=== PATIENT | male | born 1970 | race Caucasian/White ===

== ENCOUNTER 2020-05-16 09:59 | Emergency (ER) | payer BC ==
[2020-05-16] MEDS ORDERED: EPINEPHrine 1:10,000 (P-F SYR) 1 MG/10 ML DISP.SYRIN ONE (10:15)
[2020-05-16] MEDS ORDERED: SODIUM BICARBONATE 8.4% - 50 ML ONE (10:15)
[2020-05-16] MEDS ORDERED: CALCIUM CHLORIDE 1 GM/10 ML *DISP.SYRIN ONE (10:15)
--- NOTE | 2020-05-16 10:15 | PDOC ---
History of Present Illness - General Stated Complaint: CARDIAC ARREST History Source: EMS, Family Exam Limitations: Clinical Condition - History of Present Illness Initial Comments: 05/16/20 10:13 49yM w PMHx HTN, DM presenting w cardiac arrest. At 9:11am this morning, heard thump, found pt unresponsive fallen down 5 steps. EMS arrived at 918am, intubated pt, found alternating between asystole and v fib on way to hospital, given 4 shocks, 6 epi, 1 ca, 1 bicarb, 300 amio. Recently evaluated at [facility], diagnosed w chest wall muscle inflammation, EMS brought to ED an empty bottle of oxy prescription w 28 pills prescribed 05/13/20 Past History - Medical History Allergies/Adverse Reactions: Allergies Allergy/AdvReac Type Severity Reaction Status Date / Time No Known Allergies Allergy Verified 03/12/12 14:05 Home Medications: Ambulatory Orders Clindamycin HCl 300 mg PO QID #60 capsule 03/12/12 Ibuprofen [Motrin] 600 mg NR QID PRN #30 tablet 03/12/12 Losartan 50Mg/Hctz 12.5MG [Hyzaar] 1 tab PO DAILY 03/12/12 Diabetes: Yes (PRE-DIABETES) HTN: Yes - Psycho-Social/Smoking History Smoking Status: No Number of Cigarettes Smoked Daily: 0 Review of Systems - Review of Systems Able to Perform ROS?: No (intubated) *Physical Exam - Physical Exam General Appearance: Yes: Nourished, Appropriately Dressed, Apparent Distress HEENT: positive: Other (no facial abrasions/trauma/bleeding). negative: VEGA (pupils fixed/mid dilated), Normal Voice, Scleral Icterus (R), Scleral Icterus (L) Respiratory/Chest: positive: Lungs Clear. negative: Chest Tender, Normal Breath Sounds (intubated) Cardiovascular: negative: Regular Rate (asystole) Gastrointestinal/Abdominal: positive: Flat, Soft Integumentary: positive: Normal Color, Warm Neurologic: negative: Alert (intubated) ED Treatment Course - ADDITIONAL ORDERS Additional order review: Laboratory Results 05/16/20 10:03 POC Glucometer 536 05/16/20 10:03 POC Glucometer 536 Medical Decision Making - Medical Decision Making 05/16/20 10:48 49yM brought from home w cardiac arrest Given 4 shocks, 6 epi, 1 ca, 1 bicarb, 300 amio, continuous CPR by EMS for 30min on way to hospital Arrived 950 at hospital, 3 rhythm checks, asystole, given 1xepi, 1xd50, pupils fixed/mid-dilated, bg 536 Pronounced at 10:04am bar examiner accepted case - [employer], #[phone] Talked to , parents Attempted contacted Dr Ollie Andrade PCP multiple times w/o success Discharge - Discharge Information Problems reviewed: Yes Clinical Impression/Diagnosis: Cardiac arrest Condition: Disposition: - Follow up/Referral - Patient Discharge Instructions - Post Discharge Activity
[2020-05-16] MEDS ORDERED: AMIODARONE HCL 150 MG/3 ML VIAL ONE (10:17)
[2020-05-16] MEDS ORDERED: DEXTROSE 50%-WATER 25 GM/50 ML DISP.SYRIN ONE (10:17)
[2020-05-16 10:27] VITALS: BP 00/00; PULSE 0; BMI 25.8
--- NOTE | 2020-05-16 10:45 | PDOC ---
Documentation entered by Stephanie Baltazar SCRIBE, acting as scribe for Zeenat Stevenson MD. Zeenat Stevenson MD: This documentation has been prepared by the vaishaliibeGiovanny Ana, SCRIBE, under my direction and personally reviewed by me in its entirety. I confirm that the documentation accurately reflects all work, treatment, procedures, and medical decision making performed by me. Attending Attestation - Resident Resident Name: Isaac Pendleton - ED Attending Attestation I have performed the following: I have examined & evaluated the patient, The case was reviewed & discussed with the resident, I agree w/resident's findings & plan, Exceptions are as noted - HPI HPI: 05/16/20 10:12 Patient is a 49 year old male with a significant past medical history of hypertension and diabetes who presents to the ED with cardiac arrest since earlier today. Per EMS, patients said patient fell down the stairs (unwitnessed) and was down for 7 minutes - was totally normal before incident. Per EMS, patient has no signs of head trauma/trauma with the exception of a suspected skin graft on anterior left leg. Per EMS, they were doing CPR for 30 minutes prior to ED arrival and administered multiple rounds of EPI, bycarb, calcium, and IV barcan. In ED, blood sugar was checked: 536, more rounds of EPI were given along with chest compressions and pupil checks. Time of : 10:04am. - Physicial Exam PE: 05/16/20 10:32 Agree with resident exam. Patient presents to the ED in asystole after >30 min in cardiac arrest. Pulseless and apneic, with fixed and dilated pupils. - Medical Decision Making 05/16/20 10:42 Pt presented to the ED pulseless and apneic after >30 minutes of CPR by EMS. ETT placement confirmed, IV access obtained, given epi x 1 and d 50. Found to be in asystole with fixed and dilated pupils on arrival to the Ed. At this point, further resuscitative efforts were thought to be futile and patient was pronounced at 10;04 am. Patient's parents notified. Will call ME. 05/16/20 10:47 ME accepted case. Case # [id number] Discharge - Discharge Information Problems reviewed: Yes Clinical Impression/Diagnosis: Cardiac arrest Condition: Disposition: - Follow up/Referral - Patient Discharge Instructions - Post Discharge Activity
== END 2020-05-16 11:01 | disposition expired ==
LOC: JER 09:59
DX: I46.9 Cardiac arrest, cause unspecified (principal)
CPT/HCPCS: 82962; 99285-25